=== PATIENT | female | born 1955 | race Caucasian/White ===

== ENCOUNTER 2017-06-21 14:29 | Emergency (ER) | payer BC ==
[2017-06-21 16:00] LABS: Hematocrit 42 % (35-47); Mean Corpuscular HGB Conc 34 g/dl (31-36); Mean Corpuscular Hemoglobin 31 pg (27-31); Mean Corpuscular Volume 92 fL (80-97); Mean Platelet Volume 10 um3 (7.4-10.4); Red Blood Count 4.57 10^6/ul (4.0-5.4); Red Cell Distribution Width 13 % (10.5-15); White Blood Count 6.8 10^3/ul (3.5-10.8)
[2017-06-21 16:12] LABS: Troponin I 0.02 ng/mL (<0.04)
[2017-06-21 16:16] LABS: Add Diff/Slide Review? Slide Review Added; Comments Flag Yes
[2017-06-21 16:39] LABS: Albumin 4.4 g/dL (3.2-5.2); Calcium 9.4 mg/dL (8.6-10.3); EGFR African American 110.1 (>60); EGFR Non-African American 85.6 (>60); Globulin 3.1 g/dL (2-4); Potassium 3.9 mmol/L (3.5-5.0); Total Bilirubin 0.5 mg/dL (0.2-1.0); Total Protein 7.5 g/dL (6.4-8.9)
[2017-06-21 17:01] LABS: T4 6.84 mcg/mL (6.09-12.23)
--- NOTE | 2017-06-21 17:26 | RAD ---
Indication: Headache. Hypertension. Comparison: April 01, 2013 CT. Technique: Noncontrast CT vertex of skull through foramen magnum. Report: The sulci, ventricles, and basal cisterns are normal for age. Hanks matter white matter differentiation is preserved without evidence for edema. No intra or extra axial hemorrhage, mass, or fluid collection detected. Unremarkable visualized orbital contents. Unremarkable calvarium and skull base. Unremarkable scalp. The visualized paranasal sinuses and mastoid air spaces are clear. IMPRESSION: Negative unenhanced head CT.
[2017-06-21 17:30] VITALS: BP 120/65
[2017-06-21 17:37] LABS: Urine Bilirubin Negative (Negative); Urine Glucose Negative (Negative); Urine Nitrite Negative (Negative)
--- NOTE | 2017-06-25 01:59 | ED ---
I, Oh,Soohyun, scribed for Dariela Cuevas MD on 06/21/17 at 1511 . Hypertension - HPI Summary HPI Summary: This 61 y/o female presents to ED for elevated blood pressure. Pt reports blood pressure of 190/90 at home. "I can't control my stress". Blood pressure of 147/ 75 is noted at initial evaluation. Positive VILLA that occurred at 1330 PM but is currently resolved. Negative slurred speech, focal weakness, or trouble balancing. Pt is noted tearful and reports work place stress since 2 weeks ago. PMHx includes palpitation, HLD, known HTN, and anxiety. Pt is currently on Lexapro. FHx is negative for HTN but positive for aneurysm to father. Pt lives with . Nonsmoker and nondrinker. Primary care involves Dr. York. Plan of care involving possible ED treatment is discussed with pt. Pt states that she has upcoming appointment with primary care provider. - History of Current Complaint Chief Complaint: EDHypertension Stated Complaint: HIGH BP Time Seen by Provider: 06/21/17 14:55 Hx Obtained From: Patient, Medical Records Onset/Duration: Started Hours Ago, Atraumatic, Still Present Timing: Intermittent Aggravating Factor(s): Nothing Alleviating Factor(s): Nothing Associated Signs & Symptoms: Negative - Allergies/Home Medications Allergies/Adverse Reactions: Allergies Allergy/AdvReac Type Severity Reaction Status Date / Time No Known Drug Allergy Allergy Unknown Verified 06/26/14 12:24 Reaction Details PMH/Surg Hx/FS Hx/Imm Hx Endocrine/Hematology History: Denies: Hx Anticoagulant Therapy, Hx Diabetes, Hx Thyroid Disease Cardiovascular History: Denies: Hx Hypertension, Hx Pacemaker/ICD Respiratory History: Denies: Hx Asthma, Hx Chronic Obstructive Pulmonary Disease (COPD) GI History: Denies: Hx Ulcer History: Reports: Hx Kidney Stones - LAST ONE 20 YRS AGO Denies: Hx Renal Disease Sensory History: Reports: Hx Contacts or Glasses - BOTH Denies: Hx Hearing Aid Opthamlomology History: Reports: Hx Contacts or Glasses - BOTH Neurological History: Denies: Hx Dementia, Hx Seizures Psychiatric History: Reports: Hx Anxiety - ON LEXAPRO Denies: Hx Substance Abuse - Surgical History Surgery Procedure, Year, and Place: VARICOSE VEIN SURGERY BILAT. 2000 [facility] [place] Hx Anesthesia Reactions: No Infectious Disease History: No Infectious Disease History: Denies: Hx Clostridium Difficile, Hx Hepatitis, Hx Human Immunodeficiency Virus (HIV), Hx Shingles, Hx Tuberculosis, Traveled Outside the [place] in Last 30 Days - Family History Known Family History: Positive: Other - Positive aneurysm to father Negative: Hypertension - Social History Alcohol Use: None Substance Use Type: Reports: None Smoking Status (MU): Never Smoked Tobacco Review of Systems Negative: Fever Positive: Other - Elevated blood pressure Positive: Headache Positive: Anxious All Other Systems Reviewed And Are Negative: Yes Physical Exam Triage Information Reviewed: Yes Vital Signs On Initial Exam: Initial Vitals Temp Pulse Resp BP Pulse Ox 97.8 F 61 16 184/80 100 06/21/17 14:31 06/21/17 14:31 06/21/17 14:31 06/21/17 14:31 06/21/17 14:31 Vital Signs Reviewed: Yes Appearance: Positive: Well-Appearing, No Pain Distress Skin: Positive: Warm, Skin Color Reflects Adequate Perfusion, Dry Eyes: Positive: EOMI, GERMAINE Neck: Positive: Supple, Nontender Respiratory/Lung Sounds: Positive: Clear to Auscultation, Breath Sounds Present Cardiovascular: Positive: RRR, Pulses are Symmetrical in both Upper and Lower Extremities Abdomen Description: Positive: Nontender, Soft Musculoskeletal: Positive: Strength/ROM Intact Neurological: Positive: Sensory/Motor Intact, Alert, Oriented to Person Place, Time. Negative: Focal Deficit @, Slurred Speech Psychiatric: Positive: Other - Tearful at time of initial evaluation. AVPU Assessment: Alert - [place] Coma Scale Coma Scale Total: 15 Diagnostics - Vital Signs Vital Signs Temp Pulse Resp BP Pulse Ox 06/21/17 14:53 58 168/93 98 06/21/17 14:31 97.8 F 61 16 184/80 100 - Laboratory Result Diagrams: 06/21/17 15:45 06/21/17 15:45 Lab Statement: Any lab studies that have been ordered have been reviewed, and results considered in the medical decision making process. - CT Brain CT Interpretation: No Acute Changes CT Interpretation Completed By: Radiologist - EKG 1541 Cardiac Rate: Bradycardia - 50 bpm EKG Rhythm: Sinus Bradycardia Hypertension Course/Dx - Diagnoses Provider Diagnoses: Episode of hypertension, Anxiety Discharge - Discharge Plan Condition: Stable Disposition: HOME Patient Education Materials: Hypertension (ED), Anxiety (ED) Referrals: Willian York MD [Primary Care Provider] - 2 Days The documentation as recorded by the Ramiro maguire Soohyun accurately reflects the service I personally performed and the decisions made by me, Dariela Cuevas MD.
== END 2017-06-21 17:44 | disposition home or self-care (01) ==
LOC: ED 14:29
DX: I10 Essential (primary) hypertension (principal); F41.9 Anxiety disorder, unspecified; E78.5 Hyperlipidemia, unspecified
CPT/HCPCS: 36415; 70450; 80053; 81003; 84436; 84484; 85025; 93005; 99283

== ENCOUNTER 2019-11-21 09:03 | Emergency (ER) | payer BC ==
[2019-11-21] MEDS ORDERED: Ondansetron INJ* 2 MG/ML VIAL IV ONE (09:18)
[2019-11-21 09:30] LABS: ABS Eosinophils 0.1 10^3/ul (0-0.6); ABS Lymphocytes 1.5 10^3/ul (1.0-4.8); ABS Monocytes 0.3 10^3/ul (0-0.8); ABS Neutrophils 3.4 10^3/ul (1.5-7.7); Eosinophil % 1.4 %; Hematocrit 40 % (35-47); Hemoglobin 13.7 g/dL (12.0-16.0); Lymphocyte % 27.7 %; Mean Corpuscular HGB Conc 34 g/dL (31-36); Mean Corpuscular Hemoglobin 31 pg (27-31); Mean Corpuscular Volume 92 fL (80-97); Mean Platelet Volume 9.1 fL (7.4-10.4); Nucleated Red Blood Cells % 0.1; Platelet Count 271 10^3/uL (150-450); Red Blood Count 4.35 10^6 /uL (3.70-4.87); Red Cell Distribution Width 13 % (10-15); White Blood Count 5.3 10^3/uL (3.5-10.8)
[2019-11-21 09:46] LABS: Albumin 4.3 g/dL (3.2-5.2); Albumin/Globulin Ratio 1.5 (1-3); BUN/Creatinine Ratio 15.8 (8-20); Calcium 9.4 mg/dL (8.6-10.3); EGFR African American 93.3 (>60); EGFR Non-African American 77.1 (>60); Globulin 2.8 g/dL (2-4); Potassium 3.9 mmol/L (3.5-5.0); Total Bilirubin 0.4 mg/dL (0.2-1.0); Total Protein 7.1 g/dL (6.4-8.9)
--- OUTSIDE RECORDS SUMMARY | 2019-11-21 10:01 | XMS REPORT | Continuity of Care Document ---
:1955 External Reference #:[id number] Author Name Willian York M.D. (transmitted by agent of provider Charlene Sampson ) Address [address], [place] [address] Care Team Providers Name Role Phone Willian York III, MD - Internal Care Team Information Leak Gang Supervisor Medicine [facility] Services - Care Team Information Leak Gang Supervisor [phone] Counseling Shashi Engel MD - Gastroenterology Care Team Information Leak Gang Supervisor Joe Todd MD - Obstetrics & Care Team Information Leak Gang Supervisor Gynecology Problems Active Problems Provider Date Pure hypercholesterolemia Willian York M.D. Onset: 03/03/2012 Low back pain Willian York M.D. Onset: 03/03/2012 Anxiety state Willian York M.D. Onset: 03/03/2012 Palpitations Willian York M.D. Onset: 03/03/2012 Electrocardiogram abnormal Karen Montes M.D. Onset: 11/25/2012 Mixed hyperlipidemia Karen Montes M.D. Onset: 11/25/2012 Chest pain Karen Montes M.D. Onset: 11/25/2012 Mitral valve disorder Karen Montes M.D. Onset: 12/28/2012 Bundle branch block Karen Montes M.D. Onset: 12/28/2012 Social History Type Date Description Comments Sex Unknown Tobacco Use Start: Unknown End: Former Cigarette Smoker smoked sporadically in Unknown college; quit age 49 Smoking Status Reviewed: 09/25/19 Former Cigarette Smoker smoked sporadically in college; quit age 49 ETOH Use 05/03/2013 Rarely consumes alcohol Tobacco Use Start: Unknown Patient has never smoked Exercise Exercises regularly Type/Frequency Allergies, Adverse Reactions, Alerts Description No Known Drug Allergies Medications Active Medications SIG Qnty Indications Ordering Provider Date Venlafaxine HCL ER 1 po daily 30caps F41.9 Willian York, 08/16/2019 75mg M.D. Caps ER 24HR Alprazolam one by mouth 10tabs F41.9 Willian York, 05/31/2019 0.25mg daily as needed M.D. Tablets for anxiety Ibuprofen take 1 tablet by 60tabs Willian York, 02/21/2018 600mg Tablets mouth up to 4 M.D. times a day as needed Klor-Con 10 take 1 tablet by 180tabs Willian York, 01/26/2017 10Meq mouth twice M.D. Tablets ER daily Medications Administered in Office Medication SIG Qnty Indications Ordering Provider Date PPD Injection Nurse Visit Bradley 03/07/2012 Immunizations CPT Code Status Date Vaccine Reaction Lot # [id number] Given 09/06/2018 Influenza Virus Vaccine, Tolerated well. [id number] Quadrivalent, Split, Preservative Free [id number] Given 09/14/2017 Influenza Virus Vaccine, [id number] Quadrivalent, Split, Preservative Free 72059 Given 09/16/2016 Influ Virus Vaccine, Quadrivalent, [id number] Split Virus, [place] [id number] Given 09/16/2015 Influenza Virus Vaccine, [id number] Quadrivalent, Split, Preservative Free 30540 Given 09/17/2014 Pneumonia Vaccine [id number] Given 09/17/2014 Pneumonia Vaccine [id number] 35620 Given 09/17/2014 Influenza Virus Vaccine, [id number] Quadrivalent, Split, Preservative Free 80530 Given 09/12/2013 Flu Vaccine Split Virus [id number] Preservative Free For Indiv 3Yr Older [id number] Given 08/26/2012 Fluzone Vaccine [id number] 79500 Given 03/03/2012 Tdap - Tetanus/Diptheria/Acellular [id number] Pertussis 12001 Given 12/25/2009 Influenza Virus 3Yrs & Over [id number] Vital Signs Date Vital Result Comment 09/25/2019 1:24pm Height 62 inches 5'2" Weight 147.00 lb Heart Rate 66 /min BP Systolic Sitting 144 mmHg BP Diastolic Sitting 88 mmHg BMI (Body Mass Index) 26.9 kg/m2 08/16/2019 4:23pm Height 62 inches 5'2" Weight 141.00 lb Heart Rate 63 /min BP Systolic Sitting 150 mmHg Rue reg cuff BP Diastolic Sitting 88 mmHg Rue reg cuff BP Systolic Recheck 142 mmHg Rue reg cuff recheck BP Diastolic Recheck 85 mmHg Rue reg cuff recheck O2 % BldC Oximetry 98 % BMI (Body Mass Index) 25.8 kg/m2 Results Test Date Facility Test Result H/L Range Note Lipid Profile 09/20/2019 [facility] Triglycerides 147 mg/dL 1 (Trig/Chol/HDL) [address] [address] [phone] Cholesterol 261 mg/dL 2 HDL Cholesterol 44.7 mg/dL 3 LDL Cholesterol 187 mg/dL 4 1 Desirable: <150 Borderline High: 150-199 High: 200-499 Very High: >500 2 Desirable: <200 Borderline High: 200-239 High: >239 3 Low: <40 Desirable: 40-60 High: >60 4 Desirable: <100 Near Optimal: 100-129 Borderline High: 130-159 High: 160-189 Very High: >189 Procedures Date Code Description Status 09/20/2018 88159926 Mammogram Completed 02/11/2007 [id number] Colonoscopy Completed 05/25/2002 66782028 Colonoscopy Completed Medical Devices Description No Information Available Encounters Type Date Location Provider Dx Diagnosis Office Visit 08/16/2019 Avelino Crystal F41.9 Anxiety disorder, 4:00p Laine York M.D. unspecified Office Visit 05/31/2019 Avelino Crystal M25.531 Pain in right wrist 11:40a Laine York M.D. F41.9 Anxiety disorder, unspecified Office Visit 04/05/2019 3:00p Avelino Crystal F41.9 Anxiety disorder, Laine York M.D. unspecified Assessments Date Code Description Provider 09/25/2019 Z00.00 Encounter for general adult medical Willian York M.D. examination without abnormal findings 09/25/2019 E78.00 Pure hypercholesterolemia, unspecified Willian York M.D. 09/25/2019 F41.9 Anxiety disorder, unspecified Willian York M.D. 09/25/2019 R03.0 Elevated blood-pressure reading, without Willian York M.D. diagnosis of hypertension 09/25/2019 R73.01 Impaired fasting glucose Willian York M.D. 09/25/2019 Z12.11 Encounter for screening for malignant Willian York M.D. neoplasm of colon 09/25/2019 Z12.31 Encounter for screening mammogram for Willian York M.D. malignant neoplasm of breast 08/16/2019 F41.9 Anxiety disorder, unspecified Willian York M.D. 05/31/2019 M25.531 Pain in right wrist Willian York M.D. 05/31/2019 F41.9 Anxiety disorder, unspecified Willian York M.D. 04/05/2019 F41.9 Anxiety disorder, unspecified Willian York M.D. Plan of Treatment Future Appointment(s):09/26/2020 1:20 pm - Willian York M.D. at [facility] - [facility]09/25/2019 - Willian York M.D.Z00.00 Encounter for general adult medical examination without abnormal findingsComments: Discussed the new shingles vaccine; other shots current. Still due for a colon exam.Follow up:yearly or prnE78.00 Pure hypercholesterolemia, unspecifiedComments:LDL almost at statin Rx indicated threshold; discussed drug Rx and pt elects to continue diet Rx [id number] Anxiety disorder, unspecifiedComments:Improved after pt quit her stressful job; on Rx and still following with her osubqaqmuD53.0 Elevated blood-pressure reading, without diagnosis of hypertensionComments:Occ home BP ok; continue diet/exercise efforts and occ home BP koamulC92.01 Impaired fasting glucoseComments:Diet Rx only' A1c last year srjiqdJ67.11 Encounter for screening for malignant neoplasm of colonReferral:Shashi Engel MD, ZlqgiodvmxhjldsaE82.31 Encounter for screening mammogram for malignant neoplasm of breast Functional Status Description No Information Available Mental Status Description No Information Available Referrals Refer to Reason for Referral Status Appt Date Shashi Engel MD overdue for a repeat colon exam Created [address] [place], [place] [id number] [phone] Family & Childrens Services chronic stress/anxiety sx Sent [address], [place] [id number] [phone]
[2019-11-21] MEDS ORDERED: Iohexol 300* (CONTRAST) 10 ML SDV IV ONE (10:16)
[2019-11-21 11:36] VITALS: BP 150/74
--- NOTE | 2019-11-21 12:27 | ED ---
Abdominal Pain/Female - HPI Summary HPI Summary: This patient is an otherwise healthy 64-year-old female with a recent colonoscopy yesterday from Dr. Rodriguez presenting to the ED with right sided lower quadrant pain as well as right-sided flank pain. Denies any urinary symptoms. She does admit to eating a large amount immediately following the colonoscopy with her pain starting following this. She states she was able to call her GI who recommended she come here to the ED for evaluation. Pt states on arrival to the ED she feels well and currently denying any pain, nausea, vomiting or diarrhea. Last BM yesterday following colonoscopy after food intake and this was normal. Denies fevers. Sxs not worse or better with positioning. States since she did not eat this morning, she felt improved. - History of Current Complaint Chief Complaint: Camiloin Stated Complaint: ABD PAIN Time Seen by Provider: 11/21/19 09:08 Hx Obtained From: Patient, Medical Records ?: No Onset/Duration: Sudden Onset Timing: Constant Severity Initially: Mild Severity Currently: Mild Pain Intensity: 4 Pain Scale Used: 0-10 Numeric Location: Discrete At: RLQ Radiates: Yes Radiates to: Flank Character: Cramping Aggravating Factor(s): Food Alleviating Factor(s): NPO Associated Signs and Symptoms: Negative: Diaphoresis, Fever, Cough, Chest Pain, Constipation, Blood in Stool, Urinary Symptoms, Decreased Appetite, Nausea, Vomiting - Risk Factors Ectopic Risk Factor: Negative Ovarian Torsion Risk Factor: Negative Allergies/Adverse Reactions: Allergies Allergy/AdvReac Type Severity Reaction Status Date / Time perfume AdvReac Headache Verified 11/21/19 09:07 PMH/Surg Hx/FS Hx/Imm Hx Previously Healthy: Yes Endocrine/Hematology History: Denies: Hx Anticoagulant Therapy, Hx Diabetes, Hx Thyroid Disease Cardiovascular History: Denies: Hx Hypertension, Hx Pacemaker/ICD Respiratory History: Denies: Hx Asthma, Hx Chronic Obstructive Pulmonary Disease (COPD) GI History: Denies: Hx Ulcer History: Reports: Hx Kidney Stones - LAST ONE 20 YRS AGO Denies: Hx Renal Disease Sensory History: Reports: Hx Contacts or Glasses - BOTH Denies: Hx Hearing Aid Opthamlomology History: Reports: Hx Contacts or Glasses - BOTH Neurological History: Denies: Hx Dementia, Hx Seizures Psychiatric History: Reports: Hx Anxiety - ON LEXAPRO Denies: Hx Substance Abuse - Surgical History Surgery Procedure, Year, and Place: VARICOSE VEIN SURGERY BILAT. 2000 [facility] [place] Hx Anesthesia Reactions: No - Immunization History Hx Pertussis Vaccination: No Immunizations Up to Date: Yes Infectious Disease History: No Infectious Disease History: Denies: Hx Clostridium Difficile, Hx Hepatitis, Hx Human Immunodeficiency Virus (HIV), Hx Shingles, Hx Tuberculosis, Traveled Outside the [place] in Last 30 Days - Family History Known Family History: Positive: Other - Positive aneurysm to father Negative: Hypertension - Social History Occupation: Unemployed Lives: With Family Alcohol Use: None Hx Substance Use: No Substance Use Type: Reports: None Smoking Status (MU): Never Smoked Tobacco Review of Systems Negative: Fever, Chills, Fatigue, Skin Diaphoresis Negative: Palpitations, Chest Pain Negative: Shortness Of Breath, Cough Positive: Abdominal Pain. Negative: Vomiting, Diarrhea, Nausea Genitourinary: Negative Positive: no symptoms reported, see HPI Negative: Arthralgia, Myalgia All Other Systems Reviewed And Are Negative: Yes Physical Exam Triage Information Reviewed: Yes Vital Signs On Initial Exam: Initial Vitals Temp Pulse Resp BP Pulse Ox 99.3 F 72 16 156/88 99 11/21/19 09:05 11/21/19 09:05 11/21/19 09:05 11/21/19 09:05 11/21/19 09:05 Vital Signs Reviewed: Yes Appearance: Positive: Well-Appearing, Well-Nourished Skin: Positive: Warm, Skin Color Reflects Adequate Perfusion Head/Face: Positive: Normal Head/Face Inspection Eyes: Positive: EOMI, GERMAINE, Conjunctiva Clear Neck: Positive: Supple, No Lymphadenopathy Respiratory/Lung Sounds: Positive: Clear to Auscultation, Breath Sounds Present Cardiovascular: Positive: Pulses are Symmetrical in both Upper and Lower Extremities Abdomen Description: Positive: Nontender. Negative: CVA Tenderness (R), CVA Tenderness (L) Bowel Sounds: Positive: Present Musculoskeletal: Positive: Normal, Strength/ROM Intact Neurological: Positive: Alert, Oriented to Person Place, Time, Speech Normal Psychiatric: Positive: Affect/Mood Appropriate AVPU Assessment: Alert Procedures - Sedation Patient Received Moderate/Deep Sedation with Procedure: No Diagnostics - Vital Signs Vital Signs Temp Pulse Resp BP Pulse Ox 11/21/19 11:35 97.6 F 78 16 150/74 95 12/24/19 10:16 74 130/77 96 12/24/19 10:00 71 94 11/21/19 09:59 68 122/84 93 11/21/19 09:17 76 97 11/21/19 09:16 72 147/89 97 11/21/19 09:05 99.3 F 72 16 156/88 99 - Laboratory Lab Results: Lab Results 11/21/19 11/21/19 Range/Units 09:19 09:19 WBC 5.3 (3.5-10.8) 10^3/uL RBC 4.35 (3.70-4.87) 10^6 /uL Hgb 13.7 (12.0-16.0) g/dL Hct 40 (35-47) % MCV 92 (80-97) fL MCH 31 (27-31) pg MCHC 34 (31-36) g/dL RDW 13 (10-15) % Plt Count 271 (150-450) 10^3/uL MPV 9.1 (7.4-10.4) fL Neut % (Auto) 64.2 % Lymph % (Auto) 27.7 % [place] % (Auto) 6.1 % Eos % (Auto) 1.4 % Baso % (Auto) 0.6 % Absolute Neuts (auto) 3.4 (1.5-7.7) 10^3/ul Absolute Lymphs (auto) 1.5 (1.0-4.8) 10^3/ul Absolute Monos (auto) 0.3 (0-0.8) 10^3/ul Absolute Eos (auto) 0.1 (0-0.6) 10^3/ul Absolute Basos (auto) 0.0 (0-0.2) 10^3/ul Absolute Nucleated RBC 0.0 10^3/ul Nucleated RBC % 0.1 Sodium 137 (135-145) mmol/L Potassium 3.9 (3.5-5.0) mmol/L Chloride 105 (101-111) mmol/L Carbon Dioxide 28 (22-32) mmol/L Anion Gap 4 (2-11) mmol/L BUN 12 (6-24) mg/dL Creatinine 0.76 (0.51-0.95) mg/dL Est GFR ( Amer) 93.3 (>60) Est GFR (Non-Af Amer) 77.1 (>60) BUN/Creatinine Ratio 15.8 (8-20) Glucose 122 H (70-100) mg/dL Calcium 9.4 (8.6-10.3) mg/dL Total Bilirubin 0.40 (0.2-1.0) mg/dL AST 17 (13-39) U/L ALT 17 (7-52) U/L Alkaline Phosphatase 91 (34-104) U/L Total Protein 7.1 (6.4-8.9) g/dL Albumin 4.3 (3.2-5.2) g/dL Globulin 2.8 (2-4) g/dL Albumin/Globulin Ratio 1.5 (1-3) Result Diagrams: 11/21/19 09:19 11/21/19 09:19 Lab Statement: Any lab studies that have been ordered have been reviewed, and results considered in the medical decision making process. Abdominal Pain Fem Course/Dx - Course Course Of Treatment: This patient is evaluated for right-sided lower quadrant pain as well as right flank pain. Patient admits to having a colonoscopy yesterday, polyp removed and 2 clips were placed. She states immediately following, she states she had a large amount to eat and developed abdominal pain since following. Currently denying any pain at this time. Denies any nausea or vomiting. Denies any diarrhea. Last BM yesterday and was normal. CT abd/pelvis: MPRESSION: There is a low density mass in the right lobe of the liver in segment 7. There is suggestion of a prior hypervascular lesion in this area. This may represent a thrombosed hemangioma although other processes are not excluded and correlation with MRI of the liver as an outpatient is suggested. No other masses or fluid collections are noted. Discussed case with Dr. Rodriguez who will follow up with patient regarding liver lesion. Pt OK for DC at this time. - Diagnoses Differential Diagnosis: Positive: Other - UTI, gas pains, perforation, muscle strain Provider Diagnoses: Abdominal pain Discharge ED - Sign-Out/Discharge Documenting (check all that apply): Patient Departure - Discharge Plan Condition: Stable Disposition: HOME Referrals: Willian York MD [Primary Care Provider] - Additional Instructions: Dr. Rodriguez will call you regarding follow up with the finding on your liver If you continue to have pain or develop any fevers, p[lease return to the ED immediately Tylenol as needed for discomfort and heating pad over the area - Billing Disposition and Condition Condition: STABLE Disposition: Home - Attestation Statements Provider Attestation: I have seen the patient with the JAYDA and agree with the plan and documentation below except as noted: briefly this is a 64-year-old female with a recent polypectomy with GI presenting with abdominal pain. On arrival to ED abdomen soft, imaging obtained which does not show any acute abnormalities aside from liver hemangioma. Patient to follow-up with GI. Hanny Mortensen MD
== END 2019-11-21 11:35 | disposition home or self-care (01) ==
LOC: ED 09:03
DX: R10.31 Right lower quadrant pain (principal); Z98.890 Other specified postprocedural states; F41.9 Anxiety disorder, unspecified; R16.0 Hepatomegaly, not elsewhere classified
CPT/HCPCS: 36415; 74019; 74177; 80053; 85025; 96374; 99283; J2405; Q9967